=== PATIENT | male | born 1970 | race Caucasian/White ===

== ENCOUNTER 2023-10-03 16:21 | Outpatient (RCR) | payer OTHER, SELFPAY | END 2023-10-03 23:59 | disposition home or self-care (01) | LOC: RPT 16:21 | PROVIDERS: ATTENDING PHYSICIAN Orthopaedic Surgery Orthopaedic Trauma; FAMILY PHYSICIAN Nurse Practitioner Family | DX: S43.101D Unspecified dislocation of right acromioclavicular joint, subsequent encounter (principal); M25.511 Pain in right shoulder | CPT/HCPCS: 97010; 97110; 97140; 97163 ==

== ENCOUNTER 2023-10-22 15:16 | Outpatient (RCR) | payer OTHER, SELFPAY | END 2023-10-23 07:36 | disposition home or self-care (01) | LOC: RPT 15:16 | PROVIDERS: ATTENDING PHYSICIAN Orthopaedic Surgery Orthopaedic Trauma; FAMILY PHYSICIAN Nurse Practitioner Family | DX: Z47.89 Encounter for other orthopedic aftercare (principal); S43.101D Unspecified dislocation of right acromioclavicular joint, subsequent encounter; Z73.6 Limitation of activities due to disability; M25.511 Pain in right shoulder; M62.81 Muscle weakness (generalized) | CPT/HCPCS: 97010; 97110; 97140 ==

== ENCOUNTER → 2024-06-12 06:13 | Day surgery (SDC) | payer OTHER, SELFPAY | LOC: GI 06:13 | PROVIDERS: ATTENDING PHYSICIAN Internal Medicine Gastroenterology | DX: Z12.11 Encounter for screening for malignant neoplasm of colon (principal); K57.30 Diverticulosis of large intestine without perforation or abscess without bleeding; K62.1 Rectal polyp; K64.8 Other hemorrhoids; Z83.719 Family history of colon polyps, unspecified | CPT/HCPCS: 45380; 88305 ==